=== PATIENT | female | born 1995 | race Caucasian/White ===

== ENCOUNTER 2018-02-15 05:52 | Inpatient (IN) ==
[~2018-02-15 05:52] MED LIST: Famotidine 20 MG/2 ML VIAL IVP PRN; Lidocaine 1% 20 ML MDV INFILT PRN; Metoclopramide 10 MG/2 ML VIAL IVP PRN; Naloxone 0.4 MG/ML INJ IVP PRN; Ondansetron 4 MG/2 ML VIAL IVP PRN; Penicillin G Potassium 5,000,000 UNIT in 0.9 % Sodium Chloride Mini Bag 100 ML IVPB ONE
[2018-02-15] MEDS ORDERED: Ringers Solution, Lactated 1,000 ML ONE (05:53)
[2018-02-15 05:55] LABS: Bilirubin,Urine Negative (Negative); Blood,Urine Large (Negative); Clarity,Urine Cloudy (Clear); Color,Urine Yellow (Yellow); Glucose,Urine (UA) Normal (Normal); Ketones,Urine Negative (Negative); Leukocyte Esterase,Urine Moderate (Negative); Nitrite,Urine Negative (Negative); Protein,Urine Negative (Neg-Trace); Specific Gravity,Urine 1.013 (1.010-1.025); Urobilinogen,Urine Normal (Normal)
[2018-02-15 05:56] LABS: Bacteria,Urine None Seen per hpf (None-Few); Hyaline Casts,Urine None Seen per lpf (None-Few); RBC,Urine 0-3 per hpf (0-3); Squamous Epithelial Cell,Urine Many per lpf (None-Few); WBC,Urine 30-50 per hpf (0-3)
[2018-02-15] MEDS ORDERED: Oxytocin 20 units/ LR 1000 mL 20 UNIT/1,000 ML BAG IVC ONE ×3 (05:57→07:38)
[2018-02-15] MEDS ORDERED: Ringers Solution, Lactated 1,000 ML IVC SCH (06:00)
--- NOTE | 2018-02-15 06:18 | OB/GYN History & Physical ---
Date of Encounter: 02/15/18 Time of Encounter: 05:55 Assessment and Plan (1) labor in third trimester Current visit: Yes Status: Acute Imminent delivery upon presentation Nursery called to room for delivery Qualifiers: labor delivery status: with delivery in third trimester Fetus number: single or unspecified fetus Qualified Code(s): O60.14X0 - labor third trimester with delivery third trimester, not applicable or unspecified (2) Late care Current visit: Yes Status: Acute (3) complicated by subutex maintenance, antepartum Current visit: Yes Status: Acute (4) Tobacco use complicating Current visit: Yes Status: Acute Qualifiers: Trimester: third trimester Qualified Code(s): O99.333 - Smoking (tobacco) complicating , third trimester (5) History of methamphetamine use Current visit: Yes Status: Acute History of Present Illness Chief complaint: drops of blood in my underware and feels like i have to poop HPI: Ms. Tj Levy is a 22 year old at 30 weeks 3 days gestation by second trimester ultrasound presents to labor and delivery with c/o "i have to poop" and "a few drops of blood in my underwear". She states her pain began around 4 this morning. This has been complicated by late care starting at 28 weeks and subutex usage from a presriber in [place], [place]. She has one delivery at 35 weeks with placental abruption. She states her has custody of their children and she is on probation for drug use. Labs GBS unknown Hep B nonreactive Hep C negative HIV nonreactive Varicella positive Rubella positive Blood type A+ Past Med Surg Social Fam HX - Family History Mother Adopted: No Family Member Ethnicity: Non- Living Status: Still Living Hx Family Cardiac Disorders: No Hx Family Respiratory Disorders: No Hx Family Cancer: No Hx Family GI Disorders: No Hx Family Genitourinary Disorders: No Hx Family Endocrine Disorder: No Hx Family Musculoskeletal Disorders: No Hx Family Neuromuscular Disorders: No Hx Family Neurologic Disorders: No Hx Family HEENT Disorders: No Hx Family Autoimmune Disorders: No Hx Family Reproductive Disorders: No Hx Family Psychosocial Disorders: No Hx Family Medical Disorders: No Obstetrical History - Pregnancies : 4 Para: 3 Term: 2 : 1 Ab's: 0 Livin Review of System OB All systems PM: reviewed and no additional remarkable complaints except as stated Exam - Constitutional Constitutional: well developed, well nourished, no acute distress, average body habitus - HEENT HEENT: Normocephaly, Mucus Membranes Dry - Neck Neck exam: full ROM - Lungs Respiratory exam: CTAB - Cardiovascular Cardiovascular exam: RRR, +S1, +S2 - Abdomen Abdomen: Present: bowel sounds normal, gravid, non tender - Extremities Extremities exam: calf tenderness, normal capillary refill - Vulva Vulva: bilateral: normal - Vagina Vagina: Present: normal moisture - Cervix Dilation: 9 (anterior lip) Effacement: 100 Station: +2 - Uterus Uterus exam: Present: normal size, normal contour - Anus/Rectum Anus/Rectum: Present: normal perianal skin Results All other labs normal. - VTE Reasons for not Prescribing Prophylaxis: Treatment not Indicated - Low risk for VTE
--- NOTE | 2018-02-15 06:43 | OB/GYN Procedure Note ---
Delivery - Delivery Date: 02/15/18 Provider: Luz Marina Roa Intrapartum events: meconium, precipitous labor- <3hr Delivery induction: none Delivery augmentation: rupture of membranes Delivery monitor: external FHT, external uterine Anesthesia: none Estimated Blood Loss: 200 - (s) A Delivery Date: 02/15/18 Delivery Time: 06:01 Presentation: vertex Position: RONALDO Route of delivery: Gender: Male Viability: Viable Pounds: 3 Ounces: 10 Weight Gram: 1.635 kg at 1 minute: 7 at 5 mins: 8 Shoulder Dystocia: not encountered Specimens collected: venous cord gases, arterial cord gases Placenta: spontaneous Cord: 3 umbilical vessels - Repair Episiotomy: none Laceration Description: None - Complications Delivery complications: none Delivery comments: Patient states I have to push, membranes ruptured for meconium stained fluid and patient continued to spontaneously push. of viable, vigorous male in the RONALDO position. No shoulder dystocia, no nuchal cord. Infant placed on maternal abdomen, warmed, dried, and stimulated. Cord double clamped and cut by FOB. handed over to nursery team. Apgars 7 and 8 at one and five minutes of age respectively. Placenta delivered spontaneously and appears grossly intact with 3 vessel cord. Perineum intact upon inspection. Fundus firm and at u/3 with light lochia. EBL 200. Infant taken to nursery, mother stable in recovery. Dr Rodriguez notified. - Disposition Mom disposition: stable in LDR disposition: taken to nursery
[2018-02-15 07:12] LABS: Amphetamine Screen,Urine Negative ng/mL (Cutoff=1000); Barbiturate Screen,Urine Negative ng/mL (Cutoff=200); Benzodiazepines Screen,Urine Negative ng/mL (Cutoff=200); Cannabinoid Screen,Urine Negative ng/mL (Cutoff = 50); Cocaine Screen,Urine Negative ng/mL (Cutoff= 300); Opiate Screen,Urine Negative ng/mL (Cutoff=300); Phencyclidine Screen,Urine Negative ng/mL (Cutoff=25)
[2018-02-15] MEDS ORDERED: Ondansetron 4 MG/2 ML VIAL IVP PRN (07:38)
[2018-02-15] MEDS ORDERED: Sennosides 8.6 MG TABLET PO PRN (07:38)
[2018-02-15] MEDS ORDERED: Benzocaine/Menthol 56 GM AEROSOL SPRAY TP PRN (07:38)
[2018-02-15] MEDS ORDERED: Oxytocin 20 units/ LR 1000 mL 20 UNIT/1,000 ML BAG IVC SCH (07:38)
[2018-02-15] MEDS ORDERED: Acetaminophen 325 MG TABLET PO PRN (07:38)
[2018-02-15] MEDS ORDERED: Penicillin G Potassium 2,500,000 UNIT in 0.9 % Sodium Chloride 100 ML IVPB SCH (08:00)
[2018-02-15] MEDS: Ibuprofen 600 MG TABLET PO PRN ×3 (08:26→21:37)
[2018-02-15] MEDS ORDERED: Prenatal Vit/FA 1 EACH TABLET PO SCH (09:00)
[2018-02-15] MEDS ORDERED: Nitrofurantoin (BID) 100 MG CAPSULE PO SCH (17:00)
[2018-02-16] MEDS: Ibuprofen 600 MG TABLET PO PRN (06:21)
[2018-02-16 08:04] VITALS: BP 120/84
--- NOTE | 2018-02-16 08:36 | Discharge Summary ---
Date of Encounter: 02/16/18 Time of Encounter: 08:30 - Discharge Diagnosis (1) Status post vaginal delivery Priority: Primary Status: Acute - Discharge Medications Prescriptions: Ibuprofen [Motrin] 600 mg PO Q6HR PRN #30 tablet PRN Reason: Cramping Breast Pump [BREAST PUMP] 1 each .ROUTE AD 99 Days #1 each Docusate [Colace] 100 mg PO BID #30 capsule Ferrous Sulfate 325 mg PO DAILY #30 tablet Nitrofurantoin (BID) [Macrobid] 100 mg PO BIDWM 6 Days #12 capsule Home Medications: Breast Pump [BREAST PUMP] 1 each .ROUTE AD 99 Days #1 each 02/16/18 [Rx] Docusate [Colace] 100 mg PO BID #30 capsule 02/16/18 [Rx] Ferrous Sulfate 325 mg PO DAILY #30 tablet 02/16/18 [Rx] Ibuprofen [Motrin] 600 mg PO Q6HR PRN #30 tablet 02/16/18 [Rx] Nitrofurantoin (BID) [Macrobid] 100 mg PO BIDWM 6 Days #12 capsule 02/16/18 [Rx] Allergies/Adverse Reactions: 3 Allergy/AdvReac Type Severity Reaction Status Date / Time No Known Allergies Allergy Verified 02/15/18 07:01 Data Procedures and tests throughout hospitalization: Laboratory Tests 02/15/18 02/15/18 05:44 05:44 Urine Color Yellow Urine Clarity Cloudy A Urine pH 7.0 Ur Specific [place] 1.013 Urine Protein Negative Urine Glucose (UA) Normal Urine Ketones Negative Urine Blood Large H Urine Nitrite Negative Urine Bilirubin Negative Urine Urobilinogen Normal Ur Leukocyte Esterase Moderate H Urine Microscopic RBC 0-3 Urine Microscopic WBC 30-50 H Ur Squamous Epith Cells Many H Urine Bacteria None Seen Hyaline Casts None Seen Ur Culture Indicated? NO. Urine Opiates Screen Negative Ur Barbiturates Screen Negative Ur Phencyclidine Scrn Negative Ur Amphetamines Screen Negative U Benzodiazepines Scrn Negative Urine Cocaine Screen Negative U Marijuana (THC) Screen Negative Date of admission: 02/15/18 05:52 Primary care physician: PCP NONE Consults: 02/15/18 05:54 Consult to Custom Feed Corn Operator (W&C) [CONS] Routine Reason For Exam: Reason for SW Consult: 30 week delivery. No show at group for first visit. 02/15/18 07:38 Consult to Rug Inspector Helper [CONS] Routine Comment: Vaginal delivery, consult needed Discharging clinician: Cash Chandra Anticipated date of discharge: 02/16/18 - Patient Status Disposition: Home, Self-Care Condition: Good Functional capacity at discharge: independent ambulation Overall status at discharge: patient is not back to baseline - Discharge Instructions Follow Up With: NONE,PCP [Primary Care Provider] - Luz Marina Roa, CNM [Advanced Practice Nurse] - - Diet and Activity Activity: increase activity as tolerated, return to work once cleared by your PCP/specialist, resume usual activities as tolerated Diet: advance to your usual diet Hospital Course Procedures: Delivery - Delivery Date: 02/15/18 Provider: Luz Marina Roa Intrapartum events: meconium, precipitous labor- <3hr Delivery induction: none Delivery augmentation: rupture of membranes Delivery monitor: external FHT, external uterine Anesthesia: none Estimated Blood Loss: 200 - (s) A Delivery Date: 02/15/18 Delivery Time: 06:01 Presentation: vertex Position: RONALDO Route of delivery: Gender: Male Viability: Viable Pounds: 3 Ounces: 10 Weight Gram: 1.635 kg at 1 minute: 7 at 5 mins: 8 Shoulder Dystocia: not encountered Specimens collected: venous cord gases, arterial cord gases Placenta: spontaneous Cord: 3 umbilical vessels - Repair Episiotomy: none Laceration Description: None - Complications Delivery complications: none Reason for admission: active labor, IUP - Delivery: Episiotomy: none Laceration: none Other procedures: none complications: none Discharge diagnosis: delivery baby: male Hospital course: Patient states she is doing well. Lochia is light without clots. Tolerating PO intake without difficulty. Voiding and ambulating without difficulty. Passing gas but no bowel movement yet. Pain is well controlled. Denies fever, chills, nausea, vomiting. She is planning to leave for [place] after discharge. Time Attestation: Total time spent providing and/or coordinating discharge services: Time Spent: Greater than 30 minutes Exam - Constitutional Vitals: Temp Pulse Resp BP Pulse Ox 98.1 F 77 16 120/84 98 02/16/18 08:02 02/16/18 08:02 02/16/18 08:13 02/16/18 08:02 02/16/18 08:02 General appearance IM: A&O X 3 - Respiratory Respiratory exam: Present: CTAB. Absent: rales, rhonchi, wheezes - Cardiovascular Cardiovascular exam IM: Present: RRR, +S1, +S2 - GI/Abdominal GI/Abdominal exam IM: hypoactive bowel sounds, no peritoneal signs - Rectal Rectal exam: deferred - Uterine Tone: Firm Uterus Position: At Umbilicus, Midline - Extremities Exam Extremities exam IM: Present: full ROM, warm, radial pulses palpable and symmetrical - Neurological Exam Neurological exam: alert, oriented X3 - Psychiatric Additional comments: Patient is in good mood
== END 2018-02-16 11:45 | disposition home or self-care (01) | DRG 560 ==
LOC: 1NENULAB → 1NENUOBS 09:13
PROVIDERS: ADMIT Advanced Practice Midwife; ATTEND Advanced Practice Midwife